=== PATIENT | male | born 1945 | race Caucasian/White ===

== ENCOUNTER 2017-05-23 14:57 | Emergency (ER) | payer MEDICARE, OTHER ==
[~2017-05-23] VITALS: Ht 175.3 cm; Wt 93.9 kg
[~2017-05-23 14:57] MED LIST: ALLO300T2 PO; ASP81TEC PO; CHOL200059 PO; CHOL4PAC17 PO; LISI40TA PO; METF500T4 PO; OMEP20CA12 PO; PRV20T PO; SPIR25TA3 PO
--- NOTE | 2017-05-23 15:06 | ED Neurological Problem ---
General Chief Complaint: Neuro-Stroke Like Symptoms Stated Complaint: CONFUSION, DIZZINESS, SLURRED SPEECH Source: patient, family, RN notes reviewed Exam Limitations: no limitations History of Present Illness Time seen by provider: 15:06 Initial Comments Family presents patient c/ c/o worsening dizziness since yesterday and now slurred speech since 0800 this AM. No previous similar episodes. Denies any weakness. No known fever. No LEWIS. Timing/Duration: 24 hours Severity: moderate Associated Symptoms: slurred speech, trouble walking (secondary to dizziness) Allergies and Home Medications Allergies Coded Allergies: No Known Drug Allergies (Unverified , 09/15/12) Home Medications Allopurinol 300 Mg Tablet, 300 MG PO DAILY, (Reported) Aspirin 81 Mg Tabec, 81 MG PO DAILY, (Reported) Cholecalciferol (Vitamin D3) 2,000 Unit Tablet, 2,000 UNIT PO DAILY, (Reported) Lisinopril 40 Mg Tablet, 40 MG PO DAILY, (Reported) Metformin HCl 500 Mg Tablet, 500 MG PO DAILY, (Reported) Omeprazole 20 Mg Capsule.dr, 20 MG PO DAILY, #30 Prescribed by: HERMINIO BURKS on 07/25/16 1130 Pravastatin Sod 20 Mg Tab, 20 MG PO DAILY, (Reported) Spironolactone 25 Mg Tablet, 25 MG PO DAILY, (Reported) Constitutional: see HPI, dizziness, No fever, No weakness Psychiatric/Neurological: See HPI, Other (reported slurred speech) All Other Systems Reviewed Negative Unless Noted: Yes (Negative excepted noted.) Past Vhgirwp-Olwwhi-Axzttq Hx Patient Social History Recent Foreign Travel: No Contact w/Someone Who Travel: No Recent Hopitalizations: No (recent Z-pack for congestion) Immunizations Up To Date Tetanus Booster (TDap): More than 5yrs Date of Pneumonia Vaccine: Jul 24, 2013 Date of Influenza Vaccine: Jun 19, 2016 Seasonal Allergies Seasonal Allergies: No Surgeries HX Surgeries: Yes (hemorrhoid x2, left hand x2, right knee scope, ) Respiratory Hx Respiratory Disorders: Yes Respiratory Disorders: Sleep Apnea Cardiovascular Hx Cardiac Disorders: Yes Cardiac Disorders: Hypertension Neurological Hx Neurological Disorders: No Neurological Disorders: Headaches /Migraines Genitourinary Hx Genitourinary Disorders: No Gastrointestinal Hx Gastrointestinal Disorders: No Musculoskeletal Hx Musculoskeletal Disorders: Yes Musculoskeletal Disorders: Arthritis, Gout Endocrine Hx Endocrine Disorders: Yes (prediabetic) Endocrine Disorders: Diabetes, Non-Insulin dep HEENT HX ENT Disorders: No (cataracts) Cancer Hx Cancer: No Psychosocial Hx Psychiatric Problems: No Integumentary HX Skin/Integumentary Disorder: No Blood Transfusions Hx Blood Disorders: No Physical Exam Vital Signs Vital Sign - Last 12Hours 05/23/17 15:10 Temp 98.1 Pulse 61 Resp 18 B/P (MAP) 138/69 Pulse Ox 98 O2 Delivery Room Air Capillary Refill : General Appearance: WD/WN, no apparent distress HEENT: PERRL/EOMI, normal ENT inspection, pharynx normal Neck: supple, normal inspection Respiratory: no respiratory distress Cardiovascular: regular rate, rhythm Neurologic/Psychiatric: no motor/sensory deficits, alert, oriented x 3 Crainal Nerves: normal hearing, PERRL, abnormal speech (per family; difficult for me to determine, but I don't know what his normal speech pattern is.) Motor/Sensory: no motor deficit, no sensory deficit Skin: warm/dry Stroke Stroke Thrombolytic Exclusion TPA Contraindication: Yes Progress/Results/Core Measures Results/Orders Lab Results Laboratory Tests Test 05/23/17 15:12 05/23/17 16:17 Range/Units White Blood Count 7.4 4.3-11.0 10^3/uL Red Blood Count 4.11 L 4.35-5.85 10^6/uL Hemoglobin 12.4 L 13.3-17.7 G/DL Hematocrit 37 L 40-54 % Mean Corpuscular Volume 90 80-99 FL Mean Corpuscular Hemoglobin 30 25-34 PG Mean Corpuscular Hemoglobin Concent 34 32-36 G/DL Red Cell Distribution Width 12.8 10.0-14.5 % Platelet Count 304 130-400 10^3/uL Mean Platelet Volume 9.7 7.4-10.4 FL Neutrophils (%) (Auto) 56 42-75 % Lymphocytes (%) (Auto) 28 12-44 % Monocytes (%) (Auto) 12 0-12 % Eosinophils (%) (Auto) 4 0-10 % Basophils (%) (Auto) 0 0-10 % Neutrophils # (Auto) 4.1 1.8-7.8 X 10^3 Lymphocytes # (Auto) 2.1 1.0-4.0 X 10^3 Monocytes # (Auto) 0.9 0.0-1.0 X 10^3 Eosinophils # (Auto) 0.3 0.0-0.3 10^3/uL Basophils # (Auto) 0.0 0.0-0.1 10^3/uL Prothrombin Time 13.5 12.2-14.7 SEC INR Comment 1.1 0.8-1.4 Activated Partial Thromboplast Time 32 24-35 SEC D-Dimer 0.38 0.00-0.49 UG/ML Sodium Level 139 135-145 MMOL/L Potassium Level 3.7 3.6-5.0 MMOL/L Chloride Level 107 98-107 MMOL/L Carbon Dioxide Level 20 L 21-32 MMOL/L Anion Gap 12 5-14 MMOL/L Blood Urea Nitrogen 11 7-18 MG/DL Creatinine 0.80 0.60-1.30 MG/DL Estimat Glomerular Filtration Rate > 60 BUN/Creatinine Ratio 14 Glucose Level 188 H 70-105 MG/DL Calcium Level 8.8 8.5-10.1 MG/DL Total Bilirubin 0.6 0.1-1.0 MG/DL Aspartate Amino Transf (AST/SGOT) 17 5-34 U/L Alanine Aminotransferase (ALT/SGPT) 26 0-55 U/L Alkaline Phosphatase 91 40-136 U/L Troponin I < 0.30 <0.30 NG/ML Total Protein 6.8 6.4-8.2 GM/DL Albumin 3.8 3.2-4.5 GM/DL Urine Color YELLOW Urine Clarity CLEAR Urine pH 5 5-9 Urine Specific [place] 1.010 L 1.016-1.022 Urine Protein NEGATIVE NEGATIVE Urine Glucose (UA) NEGATIVE NEGATIVE Urine Ketones NEGATIVE NEGATIVE Urine Nitrite NEGATIVE NEGATIVE Urine Bilirubin NEGATIVE NEGATIVE Urine Urobilinogen NORMAL NORMAL MG/DL Urine Leukocyte Esterase NEGATIVE NEGATIVE Urine RBC (Auto) NEGATIVE NEGATIVE Urine RBC NONE /HPF Urine WBC NONE /HPF Urine Squamous Epithelial Cells NONE /HPF Urine Crystals NONE /LPF Urine Bacteria NEGATIVE /HPF Urine Casts NONE /LPF Urine Mucus NEGATIVE /LPF Urine Culture Indicated NO My Orders Orders - SAMRA ANDREA DO Cbc With Automated Diff (05/23/17 15:22) Protime With Inr (05/23/17 15:22) Partial Thromboplastin Time (05/23/17 15:22) Comprehensive Metabolic Panel (05/23/17 15:22) Fibrin Degradation Products (05/23/17 15:22) Troponin I (8/5/17 15:22) Ua Culture If Indicated (05/23/17 15:22) Chest 1 View, Ap/Pa Only (05/23/17 15:22) Ekg Tracing (05/23/17 15:22) Nothing By Mouth (05/23/17 Dinner) Accucheck Stat ONCE (05/23/17 15:22) Saline Lock/Iv-Start (05/23/17 15:22) Vital Signs - Stroke Q15M (05/23/17 15:22) Ct Head Wo-R/O Stroke (05/23/17 15:22) Intake & Output 06,14,22 (05/23/17 15:22) Monitor-Rhythm Ecg Trace Only (05/23/17 15:22) Dysphagia Screening Tool (05/23/17 15:22) Ct Angio Head/Neck (05/23/17 15:52) Ns Iv 1000 Ml (Sodium Chloride 0.9%) (05/23/17 15:54) Iohexol Injection (Omnipaque 350 Mg/Ml 1 (05/23/17 16:00) Medications Given in ED Vital Signs/I&O Vital Sign - Last 12Hours 05/23/17 05/23/17 05/23/17 15:10 17:30 18:52 Temp 98.1 Pulse 61 61 64 Resp 18 18 21 B/P (MAP) 138/69 138/69 Pulse Ox 98 98 98 O2 Delivery Room Air Progress Note : Progress Note Discussed results c/ patient and family. They would like patient to be transferred to a facility c/ neurology and emergent MRI capabilities. Contacted [facility] in [place] and they accepted the patient in transfer for further evaluation. ECG Initial ECG Impression Date: May 23, 2017 Initial ECG Impression Time: 15:11 Initial ECG Rate: 64 Initial ECG Rhythm: Normal Sinus Initial ECG Intervals: Normal Initial ECG Impression: Normal Initial ECG Comparisson: No Previous ECG Available Diagnostic Imaging Diagonstic Imaging: CT Plain Films/CT/US/NM/MRI: head, other (neck-nothing acute per radiologist) Departure Impression Impression: Primary Impression: TIA VS CVA Disposition: 02 XFER SHT-TRM HOSP Condition: Stable Transfer Transfer Notes To obtain MRI/Neuro eval. Transfer Time: 18:10 Transfer Facility: [place], [place] Method of Transfer: Private Vehicle Departure-Patient Inst. Referrals: RHIANNON RIDDLE MD (PCP) Primary Care Physician SAMRA ANDREA DO May 23, 2017 15:06
[2017-05-23 15:30] LABS: BASOPHILS % (AUTO) 0 % (0-10); EOSINOPHILS # (AUTO) 0.3 10^3/uL (0.0-0.3); EOSINOPHILS % (AUTO) 4 % (0-10); LYMPHOCYTES # (AUTO) 2.1 X 10^3 (1.0-4.0); LYMPHOCYTES % (AUTO) 28 % (12-44); MEAN CORPUSCULAR HEMOGLOBIN 30 PG (25-34); MEAN CORPUSCULAR HGB CONC 34 G/DL (32-36); MEAN CORPUSCULAR VOLUME 90 FL (80-99); MEAN PLATELET VOLUME 9.7 FL (7.4-10.4); MONOCYTES # (AUTO) 0.9 X 10^3 (0.0-1.0); MONOCYTES % (AUTO) 12 % (0-12); NEUTROPHILS # (AUTO) 4.1 X 10^3 (1.8-7.8); NEUTROPHILS % (AUTO) 56 % (42-75); PLATELET COUNT 304 10^3/uL (130-400); RED BLOOD COUNT 4.11 10^6/uL (4.35-5.85); RED CELL DISTRIBUTION WIDTH 12.8 % (10.0-14.5); WHITE BLOOD COUNT 7.4 10^3/uL (4.3-11.0)
[2017-05-23 15:35] LABS: INR 1.1 (0.8-1.4); PROTHROMBIN TIME PATIENT 13.5 SEC (12.2-14.7)
--- NOTE | 2017-05-23 15:37 | Diagnostic Imaging Report ---
INDICATION: Unsteady gait, slurred speech. COMPARISON: None. EXAMINATION: CT of the head without contrast. FINDINGS: Minimal age-related cerebral volume loss and chronic small vessel ischemic changes are present. There is no midline shift or mass effect. There is no hemorrhage or evidence of acute ischemia. The bony calvarium, visualized paranasal sinuses and mastoids are unremarkable. IMPRESSION: No acute intracranial abnormality. Dictated by: Dictated on workstation # [id number]
--- NOTE | 2017-05-23 15:45 | Diagnostic Imaging Report ---
INDICATION: Slurred speech, unsteady gait. COMPARISON: 11/01/12. EXAMINATION: Single view of the chest was obtained. FINDINGS: Clear lungs, bilaterally. The heart is normal. No pneumothorax. The osseous structures are normal. IMPRESSION: Negative chest. Dictated by: Dictated on workstation # [id number]
[2017-05-23 15:46] LABS: ALANINE AMINOTRANSFERASE 26 U/L (0-55); ALBUMIN 3.8 GM/DL (3.2-4.5); ANION GAP 12 MMOL/L (5-14); ASPARTATE AMINO TRANSFERASE 17 U/L (5-34); BILIRUBIN,TOTAL 0.6 MG/DL (0.1-1.0); BLOOD UREA NITROGEN 11 MG/DL (7-18); BUN/CREATININE RATIO 14; CALCIUM 8.8 MG/DL (8.5-10.1); CARBON DIOXIDE 20 MMOL/L (21-32); CHLORIDE 107 MMOL/L (98-107); GFR ESTIMATED > 60; GLUCOSE 188 MG/DL (70-105); POTASSIUM 3.7 MMOL/L (3.6-5.0); SODIUM 139 MMOL/L (135-145); TOTAL PROTEIN 6.8 GM/DL (6.4-8.2)
[2017-05-23 15:52] LABS: TROPONIN I < 0.30 NG/ML (<0.30)
[2017-05-23] MEDS ORDERED: NS IV 1000 ML 1,000 ML IV ONE (15:54)
[2017-05-23] MEDS ORDERED: IOHEXOL 350 MG/ML 100 ML (OMNIPAQUE 350) VIAL IV ONE (16:00)
[2017-05-23 16:24] LABS: BILIRUBIN,URINE NEGATIVE (NEGATIVE); KETONES,URINE NEGATIVE (NEGATIVE); LEUKOCYTE ESTERASE ,URINE NEGATIVE (NEGATIVE); NITRITE,URINE NEGATIVE (NEGATIVE); PH,URINE 5 (5-9); PROTEIN,URINE NEGATIVE (NEGATIVE); UROBILINOGEN,URINE NORMAL (NORMAL)
--- NOTE | 2017-05-23 16:52 | Diagnostic Imaging Report ---
PROCEDURE: CT angiography of the head and CT angiography of the neck with and without contrast. TECHNIQUE: Contiguous noncontrast images were obtained from the skull base through the vertex. After intravenous contrast administration, helical CT angiography of the neck was performed. Source data was reformatted into multiple MIP projections. Delayed post contrast acquisition was also obtained. INDICATION: Slurred speech. COMPARISON: None. FINDINGS: Visualized arch anatomy is normal. There is some minimal irregular plaque in the carotid bulbs. There is no stenosis or occlusion. Otherwise, the carotid arteries are normal. Both vertebral arteries are widely patent. [place], basilar artery and distal branches are grossly normal. There is no vascular occlusion, stenosis, aneurysm or AVM. There is no abnormal enhancement or mass. IMPRESSION: 1. Minimal atherosclerosis of the carotid bulbs. No vascular occlusion or stenosis identified. 2. No aneurysm or AVM. 3. No abnormal enhancement or mass. Dictated by: Dictated on workstation # [id number]
[2017-05-23 17:30] VITALS: BP 138/69
[2017-05-23 18:52] VITALS: BP 136/75
== END 2017-05-23 18:52 | disposition short-term general hospital (02) ==
LOC: EDUNIT# 14:57 → ER 14:58
DX: R47.81 Slurred speech (principal); R42 Dizziness and giddiness; R41.0 Disorientation, unspecified; I10 Essential (primary) hypertension; G43.909 Migraine, unspecified, not intractable, without status migrainosus; M06.9 Rheumatoid arthritis, unspecified; E11.9 Type 2 diabetes mellitus without complications; Z79.82 Long term (current) use of aspirin; Z79.84 Long term (current) use of oral hypoglycemic drugs
CPT/HCPCS: 36415; 70450; 70496; 70498; 71010; 80053; 81000; 84484; 85025; 85379; 85610; 85730; 93005; 93041; 96360; 96361

== ENCOUNTER → 2019-10-26 | Outpatient (CLI) | payer MEDICARE ==
[~2019-10-26] MED LIST changes: +METF-397 PO; -METF500T4 PO; -OMEP20CA12 PO; +OMEP20CA13 PO; -SPIR25TA3 PO; +SPIR25TA5 PO
--- NOTE | 2019-10-26 12:36 | Diagnostic Imaging Report ---
INDICATION: Pain. 2 views of the right hip were obtained. FINDINGS: There are mild degenerative changes. There is no fracture or dislocation. Soft tissues are unremarkable. IMPRESSION: Mild degenerative changes right hip otherwise unremarkable. Dictated by: Dictated on workstation # [id number]
--- NOTE | 2019-10-26 12:37 | Diagnostic Imaging Report ---
INDICATION: Pain. 3 views were obtained FINDINGS: There is moderate osteoarthritic change. There is no fracture or dislocation. Soft tissues are unremarkable. IMPRESSION: Moderate osteoarthritic changes otherwise unremarkable. Dictated by: Dictated on workstation # [id number]
== END ==
LOC: RAD 11:24
PROVIDERS: ATTEND Family Medicine
DX: M17.11 Unilateral primary osteoarthritis, right knee (principal); M16.11 Unilateral primary osteoarthritis, right hip
CPT/HCPCS: 73502; 73562

== ENCOUNTER → 2020-06-06 | Outpatient (CLI) | payer MEDICARE ==
[~2020-06-06] MED LIST changes: -OMEP20CA13 PO; +OMEP20CA18 PO; +REGADENOSON 0.4 MG/5 ML SYR (LEXISCAN) IV ONE
--- NOTE | 2020-06-07 13:17 | STRESS TEST ---
DATE OF SERVICE: 06/06/2020 LEXISCAN MYOVIEW STRESS TEST REPORT REFERRING PHYSICIAN: Aggie Luna MD Baseline heart rate is 62. Baseline blood pressure 159/65. Baseline EKG is sinus rhythm with no ischemic changes. In summary, the patient received resting dose of Lexiscan followed by Lexiscan injection. Then, a stress dose of Lexiscan, during the test the patient had no significant EKG changes. Tolerated the test well. The resting and stress images were reviewed, no significant ischemia or infarction on SPECT images were noted. 1. Stress score is 0. 2. TID 1.28. 3. EF 60%. CONCLUSION: 1. The patient tolerated Lexiscan well. 2. TID value of 1.28, which is mildly increased. 3. No EKG changes during test. 4. Normal left ventricular size, normal contractility, EF 60%. Job ID: [id number] DocumentID: [id number] Dictated Date: 06/07/2020 08:45:47 Occupational Health Nurse Supervisor Date: 06/07/2020 13:15:40 Dictated By: SHAD HURTADO MD
== END ==
LOC: CARD 10:10
PROVIDERS: ATTEND Internal Medicine Cardiovascular Disease
DX: I10 Essential (primary) hypertension (principal); E11.9 Type 2 diabetes mellitus without complications; E78.5 Hyperlipidemia, unspecified
CPT/HCPCS: 78452; 93017; A9502

== ENCOUNTER → 2020-06-07 | Outpatient (CLI) | payer MEDICARE | LOC: CARD 10:00 | PROVIDERS: ATTEND Internal Medicine Cardiovascular Disease | DX: I10 Essential (primary) hypertension (principal); E11.9 Type 2 diabetes mellitus without complications; E78.5 Hyperlipidemia, unspecified; R06.00 Dyspnea, unspecified; I07.1 Rheumatic tricuspid insufficiency | CPT/HCPCS: 93306 ==

== ENCOUNTER → 2021-07-10 | Outpatient (CLI) | payer OTHER ==
[~2021-07-10] MED LIST changes: -REGADENOSON 0.4 MG/5 ML SYR (LEXISCAN) IV ONE
--- NOTE | 2021-07-10 11:28 | Diagnostic Imaging Report ---
PROCEDURE: MRI lumbar spine. TECHNIQUE: Multiplanar, multisequence MRI of the lumbar spine was performed without contrast. INDICATION: Lower back pain. COMPARISON: 12/27/2010 FINDINGS: For the purposes of this exam, last well-formed disc space is denoted the L5-S1 level. Evaluation of the static alignment shows slight grade 1 retrolisthesis at L5-S1. There is no evidence of jumped facets. Vertebral body heights are preserved. There is no acute fracture. There is multilevel mild anterior corner MODIC change. Marrow signal is otherwise unremarkable. There is also mild multilevel intervertebral disc height loss. Visualized portions of distal cord are unremarkable. Conus terminates at approximately the T12-L1 level. No abnormal intrathecal filling defects are seen. Pre and paravertebral soft tissue structures are unremarkable. Axial images demonstrate the following: T12-L1: There is bilateral facet arthropathy, but no large disc bulge or focal protrusion. There is no significant spinal canal or neuroforaminal stenosis. L1-L2: There is bilateral facet arthropathy and ligamentum flavum laxity. There is, however, no significant spinal canal or neuroforaminal stenosis. There is no large disc bulge or focal protrusion. L2-L3: There is mild broad-based posterior disc bulge and bilateral ligamentum flavum laxity and facet arthropathy. As a result, there is moderate narrowing of the spinal canal and mild narrowing of bilateral neural foramen. L3-L4: There is broad-based posterior disc bulge with right paracentric posterior disc protrusion with superior extrusion of disc material. There is also bilateral ligamentum flavum laxity and facet arthropathy. As a result, there is likely some mass effect on the exiting right L3 nerve root. There is also severe spinal canal stenosis. Thecal sac is narrowed to 4-5 mm in AP dimension. There is also mild to moderate narrowing of bilateral neural foramen. L4-L5: There is broad-based posterior disc bulge and prominent bilateral ligamentum flavum laxity and facet arthropathy. As a result, there is moderate to severe spinal canal stenosis and moderate stenosis of bilateral neural foramen. L5-S1: There is broad-based posterior disc osteophyte complex formation and bilateral facet arthropathy and ligamentum flavum laxity. As a result, there is mild to moderate narrowing of the spinal canal and moderate stenosis of bilateral neural foramen. IMPRESSION: 1. Multilevel degenerative changes of the lower lumbar spine, greatest at the L3-L4 level as described above. 2. No acute fracture or dislocation. Dictated by: Dictated on workstation # [id number]
== END ==
LOC: RAD 08:29
PROVIDERS: ATTEND Orthopaedic Surgery Orthopaedic Surgery of the Spine
DX: M47.816 Spondylosis without myelopathy or radiculopathy, lumbar region (principal); M47.817 Spondylosis without myelopathy or radiculopathy, lumbosacral region; M51.26 Other intervertebral disc displacement, lumbar region; M48.061 Spinal stenosis, lumbar region without neurogenic claudication; M48.07 Spinal stenosis, lumbosacral region; M25.78 Osteophyte, vertebrae
CPT/HCPCS: 72148